=== PATIENT | female | born 1945 | race Caucasian/White ===

== ENCOUNTER 2022-09-11 11:03 | Day surgery (SDC) | payer MEDICARE ==
[~2022-09-11 11:03] MED LIST: ACETAZOLAMIDE 250 MG TABLET PO ONE; Ak-Dilate OPHTHALMIC*** 1.065 ML, Cyclogyl 1% OPHTH SOL 1.065 ML, GATIFLOXACIN 0.5% OPH... OP ONE; BETADINE 5% OPHTHALMIC 30 ML OP ONE; Lactated Ringers 1,000 ML IV SCH; NON-FORMULARY ITEM OP ONE; TETRACAINE 0.5% STERI-UNIT SOL OP ONE; Zofran 4 MG/2 ML VIAL IV PRN; cefUROXime sodium 0.005 GM in Sodium Chloride Flush 30 ML*** 0.5 ML IJ ONE
[2022-09-11] MEDS ORDERED: LIDOCAINE HCL 1% 50 MG/5 ML VL PF IJ ONE (11:04)
[2022-09-11] MEDS ORDERED: Epinephrine Preservative Free 1 MG/ML IJ ONE (11:04)
[2022-09-11] MEDS ORDERED: Lactated Ringers 1,000 ML IV ONE (11:26)
[2022-09-11] MEDS ORDERED: Zofran 4 MG/2 ML VIAL IV ONE (12:30)
[2022-09-11] MEDS ORDERED: Zofran 4 MG/2 ML VIAL ONE (12:35)
[2022-09-11] MEDS ORDERED: BETADINE 5% OPHTHALMIC 30 ML OP ONE (13:30)
[2022-09-11] MEDS ORDERED: DIPRIVAN 200 MG/20 ML IV ONE (13:49)
[2022-09-11] MEDS ORDERED: SUBLIMAZE 100 MCG/2 ML ONE (13:49)
[2022-09-11 14:26] VITALS: BP 169/65; PULSE 52; O2SAT 99
== END 2022-09-11 14:40 | disposition home or self-care (01) ==
LOC: SDC 11:03
PROVIDERS: ATTEND Ophthalmology
DX: H25.812 Combined forms of age-related cataract, left eye (principal)
CPT/HCPCS: 99100; C1780; J0171; J2001; J2405; J2704; J3010; A9270-GY